=== PATIENT | female | born 2000 | race African-American/Black ===

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

== ENCOUNTER 2018-06-10 18:46 | Emergency (ER) | payer SELFPAY ==
[~2018-06-10] VITALS: Ht 162.6 cm; Wt 92.0 kg
[~2018-06-10 18:46] MED LIST: antihistamine
[2018-06-10 18:49] VITALS: BP 164/101
[2018-06-10] MEDS ORDERED: AMOX125S8 PO (18:53)
== END 2018-06-10 21:45 | disposition left against medical advice (07) ==
LOC: ER 18:46
DX: R51 Headache (principal); J02.9 Acute pharyngitis, unspecified; R68.83 Chills (without fever); F12.10 Cannabis abuse, uncomplicated; Z53.21 Procedure and treatment not carried out due to patient leaving prior to being seen by health care provider

== ENCOUNTER 2019-07-13 14:24 | Emergency (ER) | payer SELFPAY ==
[~2019-07-13] VITALS: Ht 165.1 cm; Wt 112.0 kg
[~2019-07-13 14:24] MED LIST changes: +AMOX125S12 PO; -antihistamine
[2019-07-13 15:29] VITALS: BP 134/70
[2019-07-13] MEDS ORDERED: DEXAMETHASONE 10 MG/ML VIAL IM ONE (15:45)
[2019-07-13] MEDS ORDERED: PENICILLIN G BENZATHINE 1,200,000 UNITS/2ML SYR IM ONE (15:45)
== END 2019-07-13 16:58 | disposition home or self-care (01) ==
LOC: ER 14:24
DX: J02.9 Acute pharyngitis, unspecified (principal); J45.909 Unspecified asthma, uncomplicated; F17.210 Nicotine dependence, cigarettes, uncomplicated; F12.10 Cannabis abuse, uncomplicated
CPT/HCPCS: 87070; 87430; 96372; 99283; J0561; J1100

== ENCOUNTER 2019-07-15 11:13 | Emergency (ER) | payer SELFPAY ==
[~2019-07-15] VITALS: Ht 162.6 cm; Wt 113.0 kg
[2019-07-15] MEDS ORDERED: ACETAMINOPHEN 325MG TABLET PO ONE (12:30)
[2019-07-15] MEDS ORDERED: AMOXICILLIN/POTASSIUM CLAVULANATE 500/125MG TAB PO ONE (12:30)
[2019-07-15 14:04] VITALS: BP 125/75
== END 2019-07-15 14:06 | disposition home or self-care (01) ==
LOC: ER 11:13
DX: J02.9 Acute pharyngitis, unspecified (principal); F12.90 Cannabis use, unspecified, uncomplicated
CPT/HCPCS: 81025; 87070; 87430; 99283

== ENCOUNTER 2019-12-06 18:55 | Emergency (ER) | payer OTHER ==
[~2019-12-06] VITALS: Ht 165.1 cm; Wt 114.0 kg
[2019-12-06 19:23] VITALS: BP 163/115
== END 2019-12-06 23:49 | disposition left against medical advice (07) ==
LOC: ER 18:55
DX: M79.89 Other specified soft tissue disorders (principal); Z53.21 Procedure and treatment not carried out due to patient leaving prior to being seen by health care provider
CPT/HCPCS: 81025